=== PATIENT | male | born 1995 | race Two or more races ===

== ENCOUNTER 2023-12-07 13:37 | Emergency (ER) | payer OTHER ==
[~2023-12-07] VITALS: Ht 165.1 cm; Wt 114.8 kg
[2023-12-07] MEDS ORDERED: MIDAZOLAM HCL 2 MG/2ML VIAL ONE (13:47)
[2023-12-07 14:04] LABS: BASOPHILS # (AUTO) 0.1 K/uL (0.0-0.2); BASOPHILS % (AUTO) 0.5 % (0.0-2.0); EOSINOPHILS # (AUTO) 0.1 K/uL (0.0-0.7); EOSINOPHILS % (AUTO) 1.1 % (0.0-6.0); HEMATOCRIT 45 % (39-51); HEMOGLOBIN 14.7 g/dL (13.5-17.5); LYMPHOCYTES # (AUTO) 2.7 K/uL (0.8-4.8); MEAN CORPUSCULAR HEMOGLOBIN 33 PG (26.0-33.0); MEAN CORPUSCULAR HGB CONC 33 g/dl (31.0-36.0); MEAN CORPUSCULAR VOLUME 99 fL (80-96); MONOCYTES # (AUTO) 0.3 K/uL (0.1-1.30); MONOCYTES % (AUTO) 2.9 % (2.0-12.0); NEUTROPHILS # (AUTO) 7.2 K/uL (1.8-8.9); NEUTROPHILS % (AUTO) 69.5 % (43.0-81.0); PLATELET COUNT (AUTO) 266 K/uL (150-450); RED BLOOD CELL COUNT(AUTO) 4.51 MIL/uL (4.5-6.0); RED CELL DISTRIBUTION WIDTH 13.2 % (11.5-15.0); WHITE BLOOD COUNT (AUTO) 10.4 K/uL (4.3-11.0)
[2023-12-07 14:14] LABS: CALCIUM, SERUM 8.4 mg/dL (8.5-10.1); CARBON DIOXIDE 26 mmol/L (21-32); CHLORIDE 104 mmol/L (98-107); CREATININE 1.2 mg/dL (0.6-1.3); GLUCOSE 147 mg/dL (74-106); POTASSIUM 3.2 mmol/L (3.5-5.1); SODIUM SERUM 139 mmol/L (136-145); UREA NITROGEN, BLOOD 14 mg/dL (7-18)
[2023-12-07 14:15] LABS: PARTIAL THROMBOPLASTIN TIME 27.4 SEC (24.3-34.3); PROTHROMBIN TIME 10.3 SECS (9.2-11.1)
[2023-12-07] MEDS: MIDAZOLAM HCL 2 MG/2ML VIAL IV ONE (14:16)
[2023-12-07 14:26] LABS: ALANINE AMINOTRANSFERASE 35 U/L (12-78); ALBUMIN 3.6 g/dL (3.4-5.0); ALKALINE PHOSPHATASE 76 U/L (46-116); ASPARTATE AMINOTRANSFERASE 19 U/L (15-37); BILIRUBIN,DIRECT 0.1 mg/dL (0.0-0.2); BILIRUBIN,TOTAL 0.4 mg/dL (0.2-1.0); NT-PRO BNP 43 pg/mL (0-125); TOTAL PROTEIN, SERUM 7.3 g/dL (6.4-8.2)
[2023-12-07 15:33] LABS: ABG BASE EXCESS -4.3 mmol/L; ABG OXYGEN SATURATION 97.1 % (92.0-98.5); ABG PCO2 46.7 mmHg (35.0-45.0); ABG PH 7.298 (7.350-7.450); ABG PO2 101.1 mmHg (75.0-100.0); ABG TOTAL HEMOGLOBIN 15.6 G/dL (13.5-18.0); COHb 0.1 % (0.5-1.5); MetHb 0.4 % (0.0-1.5); O2Hb 96.6 % (94.0-97.0); SITE, ABG Left Radial; VENT MODE, BG 4L O2 NC
[2023-12-07 20:22] LABS: ABG BASE EXCESS -0.7 mmol/L; ABG OXYGEN SATURATION 95.6 % (92.0-98.5); ABG PCO2 36.3 mmHg (35.0-45.0); ABG PH 7.423 (7.350-7.450); ABG PO2 74.9 mmHg (75.0-100.0); COHb 0.5 % (0.5-1.5); MetHb 0.3 % (0.0-1.5); O2Hb 94.8 % (94.0-97.0); SITE, ABG Left Brachial; VENT MODE, BG ROOM AIR
[2023-12-07 21:15] VITALS: BP 125/70; TEMP 98; O2SAT 98
== END 2023-12-07 21:15 | disposition home or self-care (01) ==
LOC: ER 13:49
DX: J98.01 Acute bronchospasm (principal); R41.82 Altered mental status, unspecified; R06.02 Shortness of breath
CPT/HCPCS: 31720; 36415; 36600; 70450-TC; 71045-TC; 71250-TC; 80048-TC; 80076-TC; 82803-TC; 83880; 84484-TC; 85025-TC; 85730-TC; 94799-TC; J2250